=== PATIENT | female | born 1955 | race African-American/Black ===

== ENCOUNTER → 2019-08-14 | Outpatient (CLI) | payer MEDICARE, OTHER ==
--- NOTE | 2019-08-14 14:36 | Diagnostic Imaging Report ---
Indication: Shortness of breath Technique: 2 views of the chest Comparison: Findings: There is a large left pleural effusion. The lungs and right pleural space are clear. There is a right chest port catheter and a right arm PICC. Impression: Large left pleural effusion Other findings as noted
== END | disposition home or self-care (01) ==
LOC: RAD 13:39
DX: R06.02 Shortness of breath (principal); J90 Pleural effusion, not elsewhere classified
CPT/HCPCS: 71046